=== PATIENT | female | born 1980 | race Caucasian/White ===

== ENCOUNTER 2017-01-20 17:38 | Emergency (ER) | payer MEDICAID, OTHER ==
[2017-01-20 17:47] VITALS: BP 126/74
--- NOTE | 2017-01-20 19:07 | ERNOTE ---
ENT HPI Date of Service: 01/20/17 Presenting Symptoms: dental pain Time Seen by Provider: 01/20/17 18:47 Source: patient, RN notes reviewed Exam Limitations: no limitations - Immun/Allergies/Home Medications Immunizations: IMMUNIZATION HX Immunizations Up to Date Yes History of Influenza Vaccine No Hx Pneumococcal Vaccination No Allergies/Adverse Reactions: Allergies Allergy/AdvReac Type Severity Reaction Status Date / Time No Known Allergies Allergy Unverified 04/29/15 08:13 Home Medications: HOME MEDICATIONS Ibuprofen [Motrin] 800 mg PO QID PRN #100 tab 04/28/15 [Last Taken Unknown] Clindamycin HCl [Cleocin HCl] 300 mg PO QID #40 capsule 01/20/17 [Last Taken Unknown] - History of Present Illness Narrative: 37 y/o female ambulatory to the ED for a dental infection. She saw her dentist today and was directed to come here. She broke a molar in her left lower jaw about 2 weeks ago. She began noticing swelling in her jaw and saw her dentist in hopes to have to tooth pulled before it got worse. She had a dental abscess about a year ago that ended up requiring IV antibiotics. ENT Location: Present: dental Prearrival Treatment: Present: over the counter meds Associated Symptoms - ENT: Reports: facial pain/swelling, tooth pain, jaw swelling. Denies: fever, malaise, poor fluid intake, poor solid intake, sore throat, nasal congestion/drainage, ear drainage, headache Prior Treament: Reports: similar symptoms before. Denies: recently seen Review of Systems - Review of Systems Constitutional: Present: See HPI EYE: Present: no symptoms reported ENT: Present: See HPI Respiratory: Absent: shortness of breath, cough Cardiology: Present: no symptoms reported Gastrointestinal/Abdominal: Absent: nausea, vomiting, abdominal pain Genitourinary: Absent: other - possible Musculoskeletal: Absent: muscle pain, neck pain, joint pain Skin: Absent: rash, lesions Neurological: Present: See HPI Endocrine: Present: no symptoms reported Hematologic/Lymphatic: Present: no symptoms reported Psych: Present: no symptoms reported - Patient's Past Medical History Patient History - Medical: No pertinent hx Patient History - Cardiac/Respiratory: No pertinent hx Patient History - Cancer: No Hx of Cancer Patient History - Surgical Procedures: No surgical history Patient History - Other: None LMP (females 10-50): IUD - Social History Living Situations: home Abuse History: No History of abuse Psych History: No pertinent hx Smoking Status: Current some day smoker Have you smoked in the past 12 months: Yes Do you dip or chew tobacco: No Alcohol Use: occasionally Drug Use: none - Immunizations Immunizations Up to Date: Yes Hx Pneumococcal Vaccination: No History of Influenza Vaccine: No Physical Exam - Physical Exam General Appearance: Present: wd/wn, alert, no apparent distress Eye Exam: Normal inspection: bilateral Ears, Nose, Throat: Present: normal except -, other - left lower posterior molar fractured at gumline, edema and mild tenderness along left jaw Neck: Present: normal inspection, nontender, supple, full range of motion. Absent: lymphadenopathy (R), lymphadenopathy (L) Respiratory: Present: no respiratory distress, normal breath sounds, no accessory muscle use, lungs clear Cardiovascular/Chest: Present: regular rate, rhythm, no murmur, normal peripheral pulses Neurological Exam: Present: alert, oriented, normal mood/affect Skin Exam: Present: normal color, warm/dry ED Progress - Vital Signs Patient's Vital Signs:: I have reviewed the patient's vital signs. Vital Signs: Vital Signs 01/20/17 17:41 Temperature 37.4 C Pulse Rate 81 Respiratory 16 Rate Blood Pressure 126/74 O2 Sat by Pulse 100 Oximetry - Progress/Reassessment Chief Complaint: Dental Problem Progress:: Unchanged Departure Clinical Impression: Dental abscess - Departure Disposition: Home Follow Up Needed Condition: Stable Instructions: Dental Abscess, [id number] Additional Instructions: See your dentist as scheduled Referrals: Leti Santoyo MD [Primary Care Provider] - Prescriptions: Clindamycin HCl [Cleocin HCl] 300 mg PO QID #40 capsule
== END 2017-01-20 19:40 | disposition home or self-care (01) ==
LOC: ER 17:38
DX: K04.7 Periapical abscess without sinus (principal); Z72.0 Tobacco use